=== PATIENT | male | born 1945 | race African-American/Black ===

== ENCOUNTER 2019-02-09 09:55 | Inpatient (IN) | payer OTHER ==
[2019-02-09] MEDS ORDERED: ONDANSETRON 4 MG/2 ML VIAL ONE ×2 (10:03→12:30)
[2019-02-09] MEDS ORDERED: NA CHLORIDE 0.9% 1,000 ML ONE ×2 (10:03→11:36)
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
--- OUTSIDE RECORDS SUMMARY | 2019-02-09 10:03 | XMS REPORT | Clinical Summary ---
:1945 Author Organization [facility] Address [address] [place] [address] Care Team Providers Name Role Phone Paty Vance MD Primary Care Provider Allergies No Known Allergies Medications Medication Sig Dispensed Refills Start Date End Date Status amLODIPine (NORVASC) Take 10 mg by 0 03/12/2017 Active 10 mg tablet mouth once daily. aspirin (ECOTRIN) 81 Take 81 mg by 0 03/12/2017 Active MG enteric coated mouth once tablet daily. benazepril TAKE 1 TAB(S) 0 03/12/2017 Active (LOTENSIN) 40 MG ONCE A DAY tablet ORALLY 90 DAY(S) fenofibrate (TRICOR) Take 145 mg by 0 03/01/2017 Active 145 MG tablet mouth once daily. glipiZIDE Take 5 mg by 0 03/12/2017 Active (GLUCOTROL) 5 MG mouth once tablet daily. nateglinide Take 120 mg by 1 01/19/2017 Active (STARLIX) 120 MG mouth 2 (two) tablet times a day. metFORMIN XR Take 500 mg by 0 03/12/2017 Active (GLUCOPHAGE-XR) 500 mouth once mg 24 hr tablet daily. metoprolol succinate Take 100 mg by 0 03/12/2017 Active XL (TOPROL-XL) 100 mouth once mg 24 hr tablet daily. simvastatin (ZOCOR) Take 40 mg by 0 03/12/2017 Active 40 MG tablet mouth once daily. isosorbide TAKE 1 ORAL 0 01/19/2017 Active mononitrate TABLET 2 TIMES A (ISMO,MONOKET) 20 MG DAY tablet tamsulosin (FLOMAX) Take 1 capsule 90 capsule 3 04/21/2017 Active 0.4 mg (0.4 mg total) capsule,extended by mouth daily. release 24hr tolterodine LA Take 1 capsule 90 capsule 3 04/21/2017 04/21/2018 (DETROL LA) 4 MG 24 (4 mg total) by hr capsule mouth daily. Active Problems No known active problems Encounters Date Type Specialty Care Team Description 03/09/2018 Office Visit Orthopedic Surgery Dereck Chacon Olecranon bursitis of MD MAXIMUS right elbow (Primary Dx) after 02/08/2018 Family History Medical History Relation Name Comments Diabetes Father Stroke Father No Known Problems Mother Relation Name Status Comments Father Mother Social History Tobacco Use Types Packs/Day Years Used Date Never Smoker Smokeless Tobacco: Never Used Alcohol Use Drinks/Week oz/Week Comments No Sex Assigned at Date Recorded Not on file Job Start Date Occupation Industry Not on file Not on file Not on file Travel History Travel Start Travel End No recent travel history available. Last Filed Vital Signs Vital Sign Reading Time Taken Comments Blood Pressure - - Pulse - - Temperature - - Respiratory Rate - - Oxygen Saturation - - Inhaled Oxygen Concentration - - Weight 68 kg (150 lb) 03/09/2018 9:40 AM CDT Height 175.3 cm (5' 9") 03/09/2018 9:40 AM CDT Body Mass Index 22.15 03/09/2018 9:40 AM CDT Plan of Treatment Health Maintenance Due Date Last Done Comments SHINGLES VACCINES (#1) 1993 65+ PNEUMOCOCCAL VACCINE (1 of 2 - PCV13) 2008 INFLUENZA VACCINE 01/19/2019 COLONOSCOPY SCREENING 09/15/2022 09/15/2017 Procedures Procedure Name Priority Date/Time Associated Comments Diagnosis DE ARTHROCENTESIS Routine 03/09/2018 9:20 Olecranon bursitis Results for this ASPIR&/INJ INTERM AM CDT of right elbow procedure are in JT/BURS W/O US the results section. after 02/08/2018 Results Medium Joint Arthrocentesis (03/09/2018 9:20 AM CDT) Narrative Performed At Dereck Chacon III, MD 03/12/20189:38 AM Right olecranon bursitis aspiration Consent given by: patient Supporting Documentation Indications: pain and diagnostic evaluation Procedure Details Preparation: Patient was prepped and draped in the usual sterile fashion Location: elbow - R elbow Right side: Needle size (right): 18G. Approach: posterior Right elbow medications administered: 0.5 mL lidocaine 10 mg/mL (1 %) Aspirate amount: 13 mL Aspirate: serous and bloody Patient tolerance: patient tolerated the procedure well with no immediate complications after 02/08/2018 Insurance Payer Benefit Plan / Subscriber ID Effective Dates Phone Address Type Group CIGNA CIGNA HMO/POS xxxxxxxxxxx 2007-Present [facility] MEDICARE MEDICARE PART A xxxxxxxxxx 2008-Present [place], [place] Medicare AND B AETNA AETNA HMO,POS,EPO, xxxxxxxxx 2003-Present [facility] Guarantor Name Account Type Relation to Date of Phone Billing Address Patient Hector Lorenzana Personal/Famil Self 1945 [phone]) [place] [address] Advance Directives For more information, please contact: [phone] Type Date Recorded Patient Rolling Attendant Explanation Advance Directives, Living Will and Medical Power of Damage Adjuster
--- OUTSIDE RECORDS SUMMARY | 2019-02-09 10:03 | XMS REPORT | Clinical Summary ---
:1945 Author Organization [facility] Address [address] [place] [address] Care Team Providers Name Role Phone Pcp, No Primary Care Provider Unavailable Allergies No Known Allergies Medications Medication Sig Dispensed Refills Start Date End Date Status SITagliptin (JANUVIA) Take 50 mg by 0 Active 100 MG tablet mouth daily. fenofibrate Take 135 mg by 0 Active (TRIGLIDE,LOFIBRA) mouth daily. 160 MG tablet tolterodine (DETROL) Take 4 mg by 0 Active 1 MG tablet mouth 2 (two) times daily. aspirin 81 MG EC Take 81 mg by 0 Active tablet mouth daily. amLODIPine (NORVASC) Take 10 mg by 0 Active 10 MG tablet mouth daily. metoprolol Take 100 mg by 0 Active (TOPROL-XL) 50 MG 24 mouth daily. hr tablet tamsulosin HCl Take 0.4 mg by 0 Active (TAMSULOSIN ORAL) mouth. simvastatin (ZOCOR) Take 40 mg by 0 Active 10 MG tablet mouth nightly. pioglitazone (ACTOS) Take 30 mg by 0 Active 15 MG tablet mouth daily. benazepril-hydrochlor Take 1 tablet by 0 Active thiazide (LOTENSIN mouth daily. HCT) 10-12.5 mg per tablet ibuprofen Take 1 tablet 20 tablet 0 09/20/2018 09/30/2018 (ADVIL,MOTRIN) 600 MG (600 mg total) tablet by mouth every 8 (eight) hours as needed for up to 10 days. acetaminophen-codeine Take 1 tablet by 20 tablet 0 09/20/2018 09/30/2018 (TYLENOL #3) 300-30 mouth every 6 mg per tablet (six) hours as needed for up to 10 days. Max Daily Amount: 4 tablets Active Problems Not on file Encounters Date Type Specialty Care Team Description 09/20/2018 Emergency Emergency Medicine Toma Urena MD Acute pain of right knee (Primary Dx); Hypertension, unspecified type; Vascular dementia without behavioral disturbance 09/19/2018 Travel after 02/08/2018 Social History Tobacco Use Types Packs/Day Years Used Date Never Smoker Smokeless Tobacco: Never Used Alcohol Use Drinks/Week oz/Week Comments No Alcohol Habits Answer Date Recorded How often do you have a drink containing alcohol? Never 09/19/2018 How many drinks containing alcohol do you have on a typical Not asked day when you are drinking? How often do you have six or more drinks on one occasion? Not asked Sex Assigned at Date Recorded Not on file Job Start Date Occupation Industry Not on file Not on file Not on file Travel History Travel Start Travel End No recent travel history available. Last Filed Vital Signs Vital Sign Reading Time Taken Blood Pressure 137/79 09/20/2018 3:50 AM CDT Pulse 86 09/20/2018 3:50 AM CDT Temperature 36.8 C (98.2 F) 09/19/2018 9:17 PM CDT Respiratory Rate 17 09/20/2018 3:50 AM CDT Oxygen Saturation 98% 09/20/2018 3:50 AM CDT Inhaled Oxygen Concentration - - Weight 72.6 kg (160 lb) 09/19/2018 9:17 PM CDT Height 170.2 cm (5' 7") 09/19/2018 9:17 PM CDT Body Mass Index 25.06 09/19/2018 9:17 PM CDT Plan of Treatment Not on file Procedures Procedure Name Priority Date/Time Associated Diagnosis Comments XR KNEE RIGHT STAT 09/20/2018 3:10 AM Results for this COMPLETE (4 VIEWS) CDT procedure are in the results section. after 02/08/2018 Results XR knee complete 4 views right (09/20/2018 3:10 AM CDT) Specimen Narrative Performed At FINAL REPORT [facility] RAD, KNEE, COMPLETE (4 VIEWS), RIGHT CLINICAL INDICATION:LEG PAIN COMPARISON: None FINDINGS: Frontal, lateral and oblique views of the right knee were obtained. There are bony exostoses in the proximal tibia and fibula diaphysis. There is no acute fracture or dislocation. There are small periarticular osteophytes. The joint spaces are maintained. There is a small suprapatellar effusion. There are vascular calcifications. IMPRESSION: Mild degenerative changes without acute fracture or dislocation. Small suprapatellar effusion. Signed: Alyce Glasgow MD Report Verified Date/Time:09/20/2018 03:13:55 Reading Location: [facility] B1 C013Y CT Body Reading Room Procedure Note Interface, External Ris In - 09/20/2018 3:16 AM CDT FINAL REPORT RAD, KNEE, COMPLETE (4 VIEWS), RIGHT CLINICAL INDICATION: LEG PAIN COMPARISON: None FINDINGS: Frontal, lateral and oblique views of the right knee were obtained. There are bony exostoses in the proximal tibia and fibula diaphysis. There is no acute fracture or dislocation. There are small periarticular osteophytes. The joint spaces are maintained. There is a small suprapatellar effusion. There are vascular calcifications. IMPRESSION: Mild degenerative changes without acute fracture or dislocation. Small suprapatellar effusion. Signed: Alyce Glasgow MD Report Verified Date/Time: 09/20/2018 03:13:55 Reading Location: [facility] B1 C013Y CT Body Reading Room Performing Organization Address City/State/Zipcode Phone Number GE RIS after 02/08/2018 Insurance Payer Benefit Plan / Group Subscriber ID Type Phone Address MEDICARE MEDICARE A B xxxxxxxxxxx Medicare AETNA - [place] CARE AETNA INDEMNITY NON CONTR xxxxxxxxx Comm CIGNA - [place] CARE CIGNA HMO/POS/OPEN ACCESS xxxxxxxxxxx HMO/POS
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
--- OUTSIDE RECORDS SUMMARY | 2019-02-09 10:04 | XMS REPORT | Summary of Care ---
:1945 Author Name Milena Mccoy M.A. Address Unavailable Unavailable , Care Team Providers Name Role Phone ABBY MANDEL M.D. Unavailable Unavailable Milena Mccoy M.A. Unavailable Unavailable TEQUILA GILMAN [place], ABBY Hackett Unavailable Unavailable Unavailable Unavailable Unavailable Functional Status Name Dates Details Functional status health issues are not documented Status: Name Dates Details Cognitive status health issues are not documented Status: Problems Name Dates Details Acute Osteomyelitis Of The Forearm (730.03) Status: Active Open fracture of medial malleolus, unspecified laterality, type I or II, initial encounter Status: Active Closed fracture of pubis (808.2, S32.509A) Status: Active Medications Name Dates Details Acetaminophen-Codeine #3 300-30 MG Oral Tablet TAKE 1 TABLET EVERY 6 HOURS NEEDED FOR PAIN. Quantity: 30 Refills: 1 ABBY MANDEL M.D. Start : 20-Oct-2018 Active Allergies and Adverse Reactions Name Dates Details No Known Allergies (Allergy) Status: Active Procedures Procedure Dates Details Procedures not documented Immunization Name Dates Details Immunizations not documented Social History Name Dates Details - Status: Name Dates Details Never smoker Vital Signs Date Test Result Details No Known Vitals to report Results Date Description Value Details [id number] [U] XRAY KNEE 4 OR MORE VWS RIGHT [id number] XR KNEE 4 OR MORE VWS RIGHT Images acquired, not reported on this accession number. Plan of Care Name Dates Details Planned Observations Planned Goals not documented Interventions Provided Medication ChangesAcetaminophen-Codeine #3 300-30 MG Oral Tablet - Start Instructions Name Dates Details Instructions not documented Encounters Appointment; ABBY MANDEL M.D. On: 12-Oct-2018 9:15 Encounter Diagnosis: Problem not documented
--- OUTSIDE RECORDS SUMMARY | 2019-02-09 10:04 | XMS REPORT ---
:1945 Author Organization [facility] Address [address] [place] [address] Care Team Providers Name Role Phone Unavailable Unavailable Unavailable Problems This patient has no known problems. Allergies, Adverse Reactions, Alerts This patient has no known allergies or adverse reactions. Medications This patient has no known medications. Results Test Description Test Time Test Comments Text Results Atomic Results Result Comments RAD, KNEE, 2018-09-20 03:13:00 Reason for FINAL REPORT PATIENT ID: COMPLETE (4 exam:->LEG PAIN [id number] RAD, KNEE, VIEWS), RIGHT COMPLETE (4 VIEWS), RIGHT CLINICAL INDICATION: LEG [...] or dislocation. Small suprapatellar effusion. Signed: Alyce Baxterort Verified Date/Time: 09/20/2018 03:13:55 Reading Location: [facility] B1 C013Y CT Body Reading Room
[2019-02-09 10:31] LABS: Absolute Lymphocytes (CBC) 1.1 K/uL (0.7-4.9); Basophils % 0.2 % (0-1.3); Hematocrit 27.9 % (39.6-49.0); Lymphocytes % 11.2 % (15.3-44.8); MPV 8.2 fL (7.6-11.3)
[2019-02-09 10:52] LABS: ALT/SGPT 236 U/L (12-78); Albumin 3.6 g/dL (3.4-5.0); Alkaline Phosphatase 95 U/L (45-117); BUN Blood Urea Nitrogen 29 mg/dL (7-18); Bicarbonate 30 mmol/L (21-32); Bilirubin Total 1.4 mg/dL (0.2-1.0); Glucose Level 144 mg/dL (74-106); Lipase > 30000 U/L (73-393); Potassium 3.1 mmol/L (3.5-5.1); Protein, Total 7.5 g/dL (6.4-8.2); Sodium Level 143 mmol/L (136-145)
[2019-02-09 10:53] LABS: AST/SGOT 576 U/L (15-37)
--- NOTE | 2019-02-09 11:17 | RAD REPORT ---
EXAM DESCRIPTION: US - Abdomen Exam Limited - 02/09/2019 11:10 am CLINICAL HISTORY: r/o GB;Abd pain COMPARISON: No comparisons FINDINGS: The gallbladder demonstrates multiple shadowing gallstones. Trace pericholecystic fluid is seen. The common bile duct is dilated measuring 10 mm. The liver demonstrates no findings of intrahepatic biliary dilatation. IMPRESSION: Cholelithiasis is noted with trace pericholecystic fluid. Early cholecystitis is is a po ssibility should be clinically correlated. Dilated common bile duct measuring 10 mm could indicate choledocholithiasis
[2019-02-09] MEDS ORDERED: METRONIDAZOLE 500mg IVPB 500 MG/100 ML BAG IV ONE (11:29)
[2019-02-09] MEDS ORDERED: CEFOXITIN/SWI 1gm 1 GM/10 ML SYR ONE (11:29)
[2019-02-09] MEDS ORDERED: KCL 20 MEQ/100 mL IVPB 20 MEQ/100 ML BAG IV ONE (11:36)
--- NOTE | 2019-02-09 11:47 | EDPHYS ---
Physician Documentation [facility] Name: Hector Lorenzana Jr Age: 73 yrs Sex: Male : 1945 Arrival Date: 02/09/2019 Time: 09:59 Bed 6 Private MD: ED Physician Sedrick Woods HPI: 02/09 10:54 This 73 yrs old Black Male presents to ER via EMS with complaints of Abdominal Pain, jr8 Epigastric Pain. 10:54 The patient presents with abdominal pain in the epigastric area, in the upper abdomen. jr8 Onset: The symptoms/episode began/occurred acutely, today. The symptoms do not radiate. Associated signs and symptoms: Pertinent positives: nausea and vomiting. The symptoms are described as crampy, stabbing. Modifying factors: The symptoms are alleviated by nothing, the symptoms are aggravated by nothing. Severity of pain: At its worst the pain was moderate in the emergency department the pain is unchanged. The patient has not experienced similar symptoms in the past. The patient has not recently seen a physician. Historical: - Allergies: 10:02 No Known Allergies; sv - PMHx: 10:02 Diabetes - NIDDM; Hypertension; sv - PSHx: 10:02 R ankle; sv - Immunization history:: Adult Immunizations up to date. - Social history:: Smoking status: Patient/guardian denies using tobacco, Patient/guardian denies using alcohol. - Ebola Screening: : No symptoms or risks identified at this time. ROS: 10:54 Eyes: Negative for injury, pain, redness, and discharge, ENT: Negative for injury, jr8 pain, and discharge, Neck: Negative for injury, pain, and swelling, Cardiovascular: Negative for chest pain, palpitations, and edema, Respiratory: Negative for shortness of breath, cough, wheezing, and pleuritic chest pain, Back: Negative for injury and pain, MS/Extremity: Negative for injury and deformity, Skin: Negative for injury, rash, and discoloration, Neuro: Negative for headache, weakness, numbness, tingling, and seizure. 10:54 Abdomen/GI: Positive for abdominal pain, nausea and vomiting, Negative for diarrhea, constipation, abdominal cramps, abdominal distension, anorexia, dysphagia, hematemesis, black/tarry stool, rectal pain, rectal bleeding, bowel incontinence, flatulence. Exam: 10:54 Eyes: Pupils equal round and reactive to light, extra-ocular motions intact. Lids and jr8 lashes normal. Conjunctiva and sclera are non-icteric and not injected. Cornea within normal limits. Periorbital areas with no swelling, redness, or edema. ENT: Nares patent. No nasal discharge, no septal abnormalities noted. Tympanic membranes are normal and external auditory canals are clear. Oropharynx with no redness, swelling, or masses, exudates, or evidence of obstruction, uvula midline. Mucous membranes moist. Neck: Trachea midline, no thyromegaly or masses palpated, and no cervical lymphadenopathy. Supple, full range of motion without nuchal rigidity, or vertebral point tenderness. No Meningismus. Cardiovascular: Regular rate and rhythm with a normal S1 and S2. No gallops, murmurs, or rubs. Normal PMI, no JVD. No pulse deficits. Respiratory: Lungs have equal breath sounds bilaterally, clear to auscultation and percussion. No rales, rhonchi or wheezes noted. No increased work of breathing, no retractions or nasal flaring. Back: No spinal tenderness. No costovertebral tenderness. Full range of motion. Skin: Warm, dry with normal turgor. Normal color with no rashes, no lesions, and no evidence of cellulitis. MS/ Extremity: Pulses equal, no cyanosis. Neurovascular intact. Full, normal range of motion. Neuro: Awake and alert, GCS 15, oriented to person, place, time, and situation. Cranial nerves II-XII grossly intact. Motor strength 5/5 in all extremities. Sensory grossly intact. Cerebellar exam normal. Normal gait. 10:54 Abdomen/GI: Inspection: abdomen appears normal, Bowel sounds: active, all quadrants, Palpation: soft, in all quadrants, mild abdominal tenderness, in the right upper quadrant and left upper quadrant, moderate abdominal tenderness, in the epigastric area, mass, is not appreciated, rebound tenderness, is not appreciated, voluntary guarding, is not appreciated, involuntary guarding, is not appreciated, no appreciated organomegaly, Indicators: McBurney's point is not tender, Smith's sign is negative, Rovsing's sign is negative, Liver: tenderness, is not appreciated. Vital Signs: 10:01 BP 115 / 61; Pulse 68; Resp 18; Temp 97.9; Pulse Ox 100% ; Weight 72.57 kg; Height 5 sv ft. 7 in. (170.18 cm); Pain 8/10; 11:42 BP 177 / 90; Pulse 77; Resp 20; Pulse Ox 100% ; Pain 0/10; sv 12:36 BP 163 / 84; Pulse 78; Resp 17; Pulse Ox 98% on R/A; sv 10:01 Body Mass Index 25.06 (72.57 kg, 170.18 cm) sv MDM: 10:00 Patient medically screened. 11:38 Data reviewed: vital signs, nurses notes, lab test result(s), radiologic studies, jr8 ultrasound. Data interpreted: Pulse oximetry: on room air is 100 %. Interpretation: normal. Counseling: I had a detailed discussion with the patient and/or guardian regarding: the historical points, exam findings, and any diagnostic results supporting the discharge/admit diagnosis, lab results, radiology results, the need for further work-up and treatment in the hospital. ED course: awaiting call back from Dr. Vieyra . 02/09 10:01 Order name: Basic Metabolic Panel; Complete Time: 02/09 10:01 Order name: CBC with Diff; Complete Time: 10:39 02/09 10:01 Order name: Creatinine for Radiology; Complete Time: 10:02/09 10:01 Order name: Hepatic Function; Complete Time: 02/09 10:01 Order name: Lipase; Complete Time: :02/09 10:53 Order name: US Abdomen Limited; Complete Time: 11:24 02/09 10:01 Order name: IV Saline Lock; Complete Time: 10:02/09 10:01 Order name: Labs collected and sent; Complete Time: 10:02/09 10:01 Order name: EKG - Nurse/Tech; Complete Time: 10:02/09 10:01 Order name: EKG; Complete Time: 10:02 Administered Medications: 10:20 Drug: NS 0.9% 1000 ml Route: IV; Rate: 1000 ml; Site: right antecubital; sv 11:42 Follow up: Response: No adverse reaction; IV Status: Completed infusion; IV Intake: sv 1000ml 10:20 Drug: Zofran 4 mg Route: IVP; Site: right antecubital; sv 10:50 Follow up: Response: No adverse reaction; Marked relief of symptoms; Nausea is decreasedsv 11:30 Drug: Mefoxin 1 grams {Note: given IVP per pharmacy.} Route: IVPB; Infused Over: 30 sv mins; Site: right antecubital; 11:34 Follow up: Response: No adverse reaction; IV Status: Completed infusion; IV Intake: 10mlsv 11:34 Drug: Flagyl 500 mg Volume: 100 ml; Route: IVPB; Rate: 200 ml/hr; Infused Over: 30 sv mins; Site: right antecubital; 12:54 Follow up: Response: No adverse reaction; IV Status: Completed infusion; IV Intake: sv 100ml 11:42 Drug: Potassium Chloride 20 mEq Route: IV; Rate: calculated rate; Site: right sv antecubital; 13:00 Follow up: IV Status: Infusion continued upon admission sv 11:42 Drug: NS 0.9% 1000 ml Route: IV; Rate: 75 ml/hr; Site: right antecubital; sv 12:30 Drug: Zofran 4 mg Route: IVP; Site: right antecubital; sv 13:00 Follow up: Response: No adverse reaction sv 12:32 Drug: Pepcid 20 mg Route: IVP; Site: right antecubital; sv 12:55 Follow up: Response: No adverse reaction sv Disposition: 15:33 Co-signature as Attending Physician, Sedrick Woods MD I agree with the assessment and kate plan of care. Disposition: 02/09/19 11:45 Hospitalization ordered by Jennifer Reddy for Inpatient Admission. Preliminary diagnosis are Cholecystitis, Choledocholithiasis . - Bed requested for Telemetry/MedSurg (Inpatient). - Status is Inpatient Admission. hb - Condition is Stable. - Problem is new. - Symptoms have improved. UTI on Admission? No Signatures: Dispatcher [employer] Maddy Goldstein RN RN sv Anderson, Corey, MD MD cha Martinez, Eric em1 Rupert Quiroz PA PA jr8 Callie Albert RN RN hb Corrections: (The following items were deleted from the chart) 12:51 11:45 Hospitalization Ordered by Jennifer Reddy MD for Inpatient Admission. Preliminary em1 diagnosis is Cholecystitis; Choledocholithiasis . Bed requested for Telemetry/MedSurg (Inpatient). Status is Inpatient Admission. Condition is Stable. Problem is new. Symptoms have improved. UTI on Admission? No. jr8 13:48 12:51 02/09/2019 11:45 Hospitalization Ordered by Jennifer Reddy MD for Inpatient hb Admission. Preliminary diagnosis is Cholecystitis; Choledocholithiasis . Bed requested for Telemetry/MedSurg (Inpatient). Status is Inpatient Admission. Condition is Stable. Problem is new. Symptoms have improved. UTI on Admission? No. em1
--- NOTE | 2019-02-09 11:47 | ER ---
Nurse's Notes [facility] Name: Hector Lorenzana Jr Age: 73 yrs Sex: Male : 1945 Arrival Date: 02/09/2019 Time: 09:59 Bed 6 Private MD: Diagnosis: Cholecystitis;Choledocholithiasis Presentation: 02/09 09:53 Presenting complaint: EMS states: initially called out for chest pain but upon EMS sv arrival pt pointed to the pain and it was more epigastric pain that felt like there was a "band around me." c/o dizziness. Initial BP 122/60 (manual) and latest BP 92/59 HR-60 99% RA. Transition of care: patient was not received from another setting of care. Onset of symptoms was February 09, 2019. Risk Assessment: Do you want to hurt yourself or someone else? Patient reports no desire to harm self or others. Initial Sepsis Screen: Does the patient meet any 2 criteria? No. Patient's initial sepsis screen is negative. Does the patient have a suspected source of infection? No. Patient's initial sepsis screen is negative. Care prior to arrival: None. 09:53 Method Of Arrival: EMS: [facility] sv 09:53 Acuity: ADRIANNA 3 sv Triage Assessment: 09:53 General: Appears in no apparent distress. uncomfortable, well developed, Behavior is sv calm, cooperative, appropriate for age. Pain: Complains of pain in epigastric area Pain currently is 8 out of 10 on a pain scale. Quality of pain is described as pressure, Pain began 4 hours ago. Is intermittent. Neuro: Level of Consciousness is awake, alert, obeys commands, Oriented to person, place, time, situation, Moves all extremities. Full function Gait is steady, Speech is normal. Respiratory: Airway is patent Respiratory effort is even, unlabored, Respiratory pattern is regular, symmetrical. GI: Abdomen is flat, Abd is soft X 4 quads Abdomen is tender to palpation in epigastric area. Derm: Skin is pink, warm \\T\\ dry. Historical: - Allergies: 10:02 No Known Allergies; sv - PMHx: 10:02 Diabetes - NIDDM; Hypertension; sv - PSHx: 10:02 R ankle; sv - Immunization history:: Adult Immunizations up to date. - Social history:: Smoking status: Patient/guardian denies using tobacco, Patient/guardian denies using alcohol. - Ebola Screening: : No symptoms or risks identified at this time. Screenin:21 Abuse screen: Denies threats or abuse. Denies injuries from another. Nutritional sv screening: No deficits noted. Tuberculosis screening: No symptoms or risk factors identified. Fall Risk None identified. Assessment: 11:00 Reassessment: Patient appears in no apparent distress at this time. Patient and/or sv family updated on plan of care and expected duration. Pain level reassessed. Patient is alert, oriented x 3, equal unlabored respirations, skin warm/dry/pink. 11:43 Reassessment: Patient appears in no apparent distress at this time. Patient and/or sv family updated on plan of care and expected duration. Pain level reassessed. Patient is alert, oriented x 3, equal unlabored respirations, skin warm/dry/pink. Patient denies pain at this time. 12:26 Reassessment: Patient appears in no apparent distress at this time. Patient and/or sv family updated on plan of care and expected duration. Pain level reassessed. Patient is alert, oriented x 3, equal unlabored respirations, skin warm/dry/pink. GI: Pt is actively vomiting undigested food. 13:01 Reassessment: Dr Reddy at the bedside. sv 13:05 Reassessment: Nurse to call back for report. sv 13:20 Reassessment: Patient appears in no apparent distress at this time. Patient and/or sv family updated on plan of care and expected duration. Pain level reassessed. Patient is alert, oriented x 3, equal unlabored respirations, skin warm/dry/pink. Vital Signs: 10:01 BP 115 / 61; Pulse 68; Resp 18; Temp 97.9; Pulse Ox 100% ; Weight 72.57 kg; Height 5 sv ft. 7 in. (170.18 cm); Pain 8/10; 11:42 BP 177 / 90; Pulse 77; Resp 20; Pulse Ox 100% ; Pain 0/10; sv 12:36 BP 163 / 84; Pulse 78; Resp 17; Pulse Ox 98% on R/A; sv 10:01 Body Mass Index 25.06 (72.57 kg, 170.18 cm) sv ED Course: 09:59 Patient arrived in ED. sv 09:59 Maddy Nuñez TITO is Primary Nurse. sv 10:00 Rupert Quiroz PA is PHCP. jr8 10:00 Sedrick Woods MD is Attending Physician. jr8 10:01 Triage completed. sv 10:02 Arm band placed on. sv 10:15 Inserted saline lock: 22 gauge in right antecubital area, using aseptic technique. sv Blood collected. Flushed right antecubital with 5 ml normal saline. 10:17 EKG done, by diesel automotive technician. reviewed by Rupert SAMAYOA. sm3 10:21 Patient has correct armband on for positive identification. Placed in gown. Bed in low sv position. Call light in reach. patient monitor on. Pulse ox on. NIBP on. 10:34 Door closed. Warm blanket given. Head of bed elevated. sv 11:00 Patient taken to ultrasound. via wheelchair. sv 11:12 US Abdomen Limited In Process Unspecified. EDMS 11:45 Jennifer Reddy MD is Hospitalizing Provider. jr8 11:47 Awaiting bed assignment. sv 13:22 No provider procedures requiring assistance completed. Patient admitted, IV remains in sv place. intact. Administered Medications: 10:20 Drug: NS 0.9% 1000 ml Route: IV; Rate: 1000 ml; Site: right antecubital; sv 11:42 Follow up: Response: No adverse reaction; IV Status: Completed infusion; IV Intake: sv 1000ml 10:20 Drug: Zofran 4 mg Route: IVP; Site: right antecubital; sv 10:50 Follow up: Response: No adverse reaction; Marked relief of symptoms; Nausea is decreasedsv 11:30 Drug: Mefoxin 1 grams {Note: given IVP per pharmacy.} Route: IVPB; Infused Over: 30 sv mins; Site: right antecubital; 11:34 Follow up: Response: No adverse reaction; IV Status: Completed infusion; IV Intake: 10mlsv 11:34 Drug: Flagyl 500 mg Volume: 100 ml; Route: IVPB; Rate: 200 ml/hr; Infused Over: 30 sv mins; Site: right antecubital; 12:54 Follow up: Response: No adverse reaction; IV Status: Completed infusion; IV Intake: sv 100ml 11:42 Drug: Potassium Chloride 20 mEq Route: IV; Rate: calculated rate; Site: right sv antecubital; 13:00 Follow up: IV Status: Infusion continued upon admission sv 11:42 Drug: NS 0.9% 1000 ml Route: IV; Rate: 75 ml/hr; Site: right antecubital; sv 12:30 Drug: Zofran 4 mg Route: IVP; Site: right antecubital; sv 13:00 Follow up: Response: No adverse reaction sv 12:32 Drug: Pepcid 20 mg Route: IVP; Site: right antecubital; sv 12:55 Follow up: Response: No adverse reaction sv Intake: 11:34 IV: 10ml; Total: 10ml. sv 11:42 IV: 1000ml; Total: 1010ml. sv 12:54 IV: 100ml; Total: 1110ml. sv Output: 12:26 Gastric: 200ml (Emesis); Total: 200ml. sv Outcome: 11:45 Decision to Hospitalize by Provider. asa 13:22 Admitted to Tele accompanied by tech, via wheelchair, room 423, with chart, Report sv called to Devyn FRANCIS 13:22 Condition: stable 13:22 Instructed on the need for admit. 13:48 Patient left the ED. hb Signatures: Dispatcher [employer] EDMaddy Patino RN RN Rupert Quiroz PA PA jr8 Callie Albert RN RN Amie Figueroa sm3 Corrections: (The following items were deleted from the chart) 11:34 11:30 Mefoxin 1 grams IVPB in right antecubital over 30 mins sv sv 11:43 11:43 Reassessment: Patient appears in no apparent distress at this time. No changes sv from previously documented assessment. Patient and/or family updated on plan of care and expected duration. Pain level reassessed. Patient is alert, oriented x 3, equal unlabored respirations, skin warm/dry/pink. sv
[2019-02-09] MEDS ORDERED: FAMOTIDINE 20 MG/2 ML VIAL IV ONE (12:30)
--- NOTE | 2019-02-09 13:48 | EKG ---
Test Date: 2019-02-09 Test Time: 10:08:53 Cloth Printer Helper: CIERRA MEASUREMENT RESULTS: Intervals: Rate: 62 OK: 162 QRSD: 96 QT: 456 QTc: 462 [place]: P: 63 OK: 162 QRS: 68 T: 6 INTERPRETIVE STATEMENTS: Normal sinus rhythm Minimal voltage criteria for LVH, may be normal variant Nonspecific T wave abnormality Prolonged QT Abnormal ECG No previous ECG available for comparison Electronically Signed On 02-09-19 13:47:12 CDT by Lester Rodriguez
[2019-02-09] MEDS ORDERED: ACETAMINOPHEN 650MG/RECT SUPP PR PRN (13:58)
[2019-02-09] MEDS ORDERED: ONDANSETRON 4 MG/2 ML VIAL IV PRN (13:58)
[2019-02-09] MEDS ORDERED: KCL 20 MEQ/100 mL IVPB 20 MEQ/100 ML BAG IV SCH ×2 (14:00→16:00)
[2019-02-09] MEDS ORDERED: NA CHLORIDE 0.9% 1,000 ML IV SCH (14:00)
[2019-02-09] MEDS ORDERED: GLUCAGON 1 MG/VIAL IM PRN (14:07)
[2019-02-09] MEDS ORDERED: D50W 25 GM/50 ML SYRINGE IV PRN (14:07)
[2019-02-09] MEDS ORDERED: PROMETHAZINE 25 MG/ML VIAL IV PRN (14:18)
[2019-02-09 14:52] VITALS: BMI 25.0
[2019-02-09 14:57] LABS: Urine Appearance CLEAR; Urine Bilirubin NEGATIVE (NEG); Urine Blood TRACE (NEG); Urine Color YELLOW; Urine Glucose 1+ (NEG); Urine Protein TRACE (NEG); Urine Specific Gravity 1.015 (1.005-1.030)
[2019-02-09 14:59] LABS: Urine Microscopic Reflex ORDER UMIC
[2019-02-09 15:58] LABS: Protime INR 1.07
[2019-02-09] MEDS: NA CHLORIDE 0.9% 1,000 ML IV SCH ×2 (16:06→23:58)
--- NOTE | 2019-02-09 16:06 | CON ---
Date of Consultation: 02/09/2019 Reason For Consultation: Elevated BUN and creatinine. History Of Present Illness: This is a pleasant 73-year-old black gentleman with significant past med ical history of diabetes since 2004, hypertension since 1999, no coronary artery disease. Not known of any kidney disease before. Patient came to the hospital because of right upper quadrant abdominal pain without any radiation with nausea and occasional vomiting. No fever or chills. Primary workup showed elevation in BUN and creatinine. For that reason, we have been consulted. Patient denied ta willy any nonsteroidal. No recent change in his medication. No recent hospitalization. No IV contra st. No exposure for any antibiotic. Denied any rash or any joint problem. Patient not aware about any kidney disease. Patient's primary workup showed elevation in creatinine, was 2.9 with GFR of 25 with hypokalemia and alkalosis. Past Medical History: 1.Diabetes not complicated with neuropathy or retinopathy. 2.Hypertension. 3.Hyperlipidemia. Social History: Denies smoking. Denies drinking. Denies drug abuse. Allergies: NO KNOWN DRUG ALLERGY. Family History: Positive for hypertension. Past Surgical History: Noncontributory. Medications: Home medication has been reviewed. Review of Systems: Head and Neck: No red eye. No ear pain. GI: Has right upper quadrant pain. Has nausea. No vomiting. : No polyuria. No dysuria. No hematuria. PUBLIC ADDRESS TECHNICIAN: Not applicable. Respiratory: No shortness of breath. Cardiovascular: No chest pain. Endocrine: No polydipsia. Skin: No rash. Neurologic: No neuropathy. No weakness. Musculoskeletal: No joint pain. Skin: No rash. Physical Examination: Vital Signs: When I saw the patient, blood pressure 132/76, pulse of 88. Chest: Clear to auscultation. Heart: S1, S2. Regular. Abdomen: Tenderness on the right upper quadrant. No guarding or rebound. Extremities: No edema. Neurologic: Alert and oriented x3. No focal. Laboratory Data: Sodium 143, potassium 3.1, bicarb 30, BUN 29, creatinine 2.9, GFR 25, calcium 9.2. Lipase more than 30,000. Albumin 3.6. WBC 9.5, H and H 9.5/27.9, platelets 235. Abdominal ultraso und showing multiple shadowing gallstone, polycystic fluid. Assessment And Plan: 1.Renal failure, mostly chronic kidney disease with acute component secondary to the nausea, vomitin g, the chronic kidney disease, supported with the finding of no severe disproportion. BUN and creati nine even with contraction alkalosis, acute kidney injury secondary to gastrointestinal loss secondar y to the nausea. 2.I am going to start the patient on IV hydration. Given the presence of anemia, light chain diseas e need to be ruled out. We will send for serum protein electrophoresis and we will hold blood pressu re medications, especially MARTINA inhibitor or ARB for the time being and we will follow up. 3.Hypertension, as above. 4.Cholelithiasis with cholecystitis. We will start the patient on Zosyn as by primary. We will adj ust the dosage. 5.Diabetes, as by primary. 6.Contraction alkalosis secondary to gastrointestinal loss. We are going to be corrected on hydrati on. 7.Hypokalemia secondary to gastrointestinal loss. We will supplement cautiously given the renal johnathan lure. 8.Anemia with the presence of acute kidney injury. Light chain disease needs to be ruled out. We w ill send for the workup. Thank you, Dr. Reddy, for allowing us to participate in the care of your patient. CHUNG Voice ID: [id number] Report ID: [id number]
[2019-02-09 16:22] LABS: Urine Bacteria <20 /HPF (NONE SEEN); Urine Culture Reflex Order NOT NEEDED; Urine RBC <5 /HPF (NONE SEEN)
[2019-02-09] MEDS: INSULIN -REGULAR HUMAN 50 UNIT/0.5 ML ML SQ SCH ×2 (16:30→21:00)
[2019-02-09] MEDS ORDERED: PIPER/TAZO/NS 2.25gm 2.25 GM/50 ML BAG IVPB SCH (17:00)
[2019-02-09] MEDS: HYDRALAZINE HCL 20 MG/ML VIAL IV PRN (17:45)
[2019-02-09] MEDS: PIPER/TAZO/NS 2.25gm 2.25 GM/50 ML BAG IVPB SCH (17:46)
[2019-02-09] MEDS: MORPHINE 2 MG/ML SYR IV PRN ×2 (18:33→22:13)
--- NOTE | 2019-02-09 20:06 | RAD REPORT ---
EXAM DESCRIPTION: MRI - Cholangiogram - 02/09/2019 7:55 pm CLINICAL HISTORY: check for stone Abdominal pain COMPARISON: Abdomen Exam Limited dated 02/09/2019 FINDINGS: Three-dimensional MRCP was performed using maximum intensity projection reconstruction on the same work station. The gallbladder appears distended with multiple small stones present. Mild pericholecystic fluid is s een. Intrahepatic biliary tree appears mildly prominent. Abrupt caliber change is seen in the distal common bile duct suspicious for a stone. The common bile duct is dilated to 10 mm. The pancreas appears somewhat edematous. Correlation for pancreatitis is suggested clinically. Mild ascites is noted in the abdomen. IMPRESSION: Cholelithiasis is noted with distended gallbladder. Common bile duct dilatation is prese nt abrupt caliber change distally, raising suspicion of stone or stricture. Mild edematous appearance of the pancreatic parenchyma is seen, suggest correlation with amylase and lipase levels for possible pancreatitis. Mild ascites is noted in the abdomen.
[2019-02-10] MEDS ORDERED: HALOPERIDOL LACT 5 MG/ML INJ IV PRN ×2 (00:31→20:00)
[2019-02-10] MEDS: PIPER/TAZO/NS 2.25gm 2.25 GM/50 ML BAG IVPB SCH ×3 (01:40→17:19)
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
[2019-02-10] MEDS: MORPHINE 2 MG/ML SYR IV PRN ×2 (02:21→12:31)
[2019-02-10 06:16] LABS: Absolute Lymphocytes (CBC) 0.5 K/uL (0.7-4.9); Basophils % 0.1 % (0-1.3); Hematocrit 35.3 % (39.6-49.0); Lymphocytes % 4.1 % (15.3-44.8); MPV 7.8 fL (7.6-11.3); RBC Red Blood Cell Count 3.98 M/uL (4.33-5.43)
[2019-02-10 07:25] LABS: Bilirubin Total 2.7 mg/dL (0.2-1.0); Magnesium 1.9 mg/dL (1.8-2.4); Phosphorus 3.8 mg/dL (2.5-4.9); Potassium 3.5 mmol/L (3.5-5.1)
[2019-02-10] MEDS: INSULIN -REGULAR HUMAN 50 UNIT/0.5 ML ML SQ SCH ×4 (07:30→20:48)
[2019-02-10] MEDS: FAMOTIDINE 20 MG/2 ML VIAL IV SCH (08:02)
--- NOTE | 2019-02-10 09:22 | P.PN ---
Subjective Date of Service: 02/10/19 Subjective: Improving Physical Examination - Vital Signs Temperature: 98.3 F Blood Pressure: 171/91 Pulse: 86 Respirations: 20 Pulse Ox (%): 97 - Physical Exam General: Alert, In no apparent distress, Cooperative Gastrointestinal: Other (soft, mild stable epigastric TTP, no peritnoeal signs, mild voluntary guarding) - Studies Laboratory Data (last 24 hrs) 02/09/19 10:15: Creatinine 2.93 H 02/09/19 10:15: WBC 9.5, Hgb 9.5 L, Hct 27.9 L, Plt Count 235 02/09/19 10:15: Sodium 143, Potassium 3.1 L, BUN 29 H, Creatinine 2.95 H, Glucose 144 H, Total Bilirubin 1.4 H, AST 576 H*, ALT 236 H, Alkaline Phosphatase 95, Lipase > 60039 H Assessment And Plan - Current Problems (Diagnosis) (1) Acute gallstone pancreatitis Current Visit: Yes Status: Acute Plan: - Await GI consult with Dr. Holliday to decide if ERCP is necessary - continue medical management - cholecystectomy before discahrge, likely on wednesday
[2019-02-10 09:23] LABS: Blood Morphology Comment NOT SEEN (NOT SEEN); Platelet Estimate ADEQ
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
[2019-02-10] MEDS: NA CHLORIDE 0.9% 1,000 ML IV SCH ×2 (10:01→16:26)
[2019-02-10] MEDS: HYDRALAZINE HCL 20 MG/ML VIAL IV PRN (11:43)
[2019-02-10] MEDS ORDERED: GENTAMICIN SULF 80 MG/2ML INJ ONE ×3 (14:12→15:03)
[2019-02-10] MEDS ORDERED: PROPOFOL 200 MG/20 ML VIAL IV ONE ×2 (15:01)
[2019-02-10] MEDS ORDERED: LIDOCAINE 1% MPF 5 ML VIAL ONE (15:01)
[2019-02-10] MEDS ORDERED: EPHEDRINE SULF 50 MG/ML VIAL ONE (15:01)
--- NOTE | 2019-02-10 16:02 | ENDO RPT ---
[address], [address] ERCP PROCEDURE REPORT EXAM DATE: 02/10/2019 PATIENT NAME: Hector Lorenzana MR #: [id number] BIRTHDATE: 1945 ATTENDING: Allan Vieyra Dr STATUS: inpatient - [facility] ATTENDANT: Chela Linder, Crystal Quinones RN, and Fadi Flores RN INDICATIONS: The patient is a 73 yr old Male here for an ERCP due to suspected stone, abnormal imaging, abdominal pain, abnormal Liver Function Tests, and gallstone pancreatitis PROCEDURE PERFORMED: ERCP with sphincterotomy, ERCP with balloon passage, ERCP with removal of stones, and ERCP with stent placement MEDICATIONS: Per Anesthesia. CONSENT: The patient understands the risks and benefits of the procedure and understands that these risks include, but are not limited to: sedation, allergic reaction, infection, perforation and/or bleeding. Alternative means of evaluation and treatment include, among others: physical exam, x-rays, and/or surgical intervention. The patient elects to proceed with this endoscopic procedure. DESCRIPTION OF PROCEDURE: During intra-op preparation period all mechanical medical equipment was checked for proper function. Hand hygiene and appropriate measures for infection prevention was taken. Procedure, possible complications, and alternatives including but not limited to the possibility of bleeding, perforation, tear, infection, sepsis, need for surgery, need for blood transfusion, and anesthesia related complications were explained to the patient. In addition, 5-30% incidence of acute pancreatitis as a result of ERCP were explained. After the risks, benefits and alternatives of the procedure were thoroughly explained, Informed was verified, confirmed and timeout was successfully executed by the treatment team. With the patient in left semi-prone position, medications were administered intravenously.The [id number] ([id number]) was passed from the mouth into the esophagus and further advanced from the esophagus into the stomach. From stomach scope was directed to the second portion of the duodenum. Major papilla was aligned with the duodenoscope. The scope position was confirmed fluoroscopically. Rest of the findings/therapeutics are given below. The scope was then completely withdrawn from the patient and the procedure completed. The pulse, BP, and O2 saturation were monitored and documented by the physician and the nursing staff throughout the entire procedure. The patient was cared for as planned according to standard protocol. The patient was then discharged to recovery in stable condition and with appropriate post procedure care. A 4 mm black stone was found in the common bile duct. Sphincterotomy was performed with a regular 20 mm papillotome. A stone retrieval balloon was passed. A straight stent was placed. The pancreatic duct was filled to the tail and appeared to be normal. Care was taken not to overfill the ductal system. ADVERSE EVENT: none IMPRESSIONS: 1. 4 mm black stone in the distal common bile duct, s/p plastic biliary stent placement 2. The pancreatic duct was filled to the tail and appeared to be normal. Care was taken not to overfill the ductal system. RECOMMENDATIONS: 1. antibiotics 2. follow-up: GI clinic 4 week(s) REPEAT EXAM: Return in 2 week(s) for ERCP. Allan Vieyra Dr eSigned: Allan Vieyra Dr 02/10/2019 4:02 PM cc: CPT CODES: ICD9 CODES: PATIENT NAME: Hector Lorenzana MR#: [id number]
[2019-02-10] MEDS ORDERED: GLUCAGON 1 MG/VIAL ONE (16:08)
--- NOTE | 2019-02-10 16:42 | RAD REPORT ---
EXAM DESCRIPTION: RAD - Fluoroscopy ERCP - 02/10/2019 4:21 pm FINDINGS: Four portable C-arm views were submitted from a fluoroscopic assisted ERCP. Fluoro time wa s 3 minutes 20 seconds. Assessment is limited when only selected images are available. A small filling defect is seen on 2 of the images. This is suspected to be a duct stone but needs correlation with appearance during real-t alfreda evaluation.
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
[2019-02-11] MEDS: PIPER/TAZO/NS 2.25gm 2.25 GM/50 ML BAG IVPB SCH ×3 (00:30→16:20)
[2019-02-11] MEDS: HYDRALAZINE HCL 20 MG/ML VIAL IV PRN ×2 (01:07→19:27)
[2019-02-11] MEDS: MORPHINE 2 MG/ML SYR IV PRN ×2 (02:32→06:37)
[2019-02-11] MEDS: NA CHLORIDE 0.9% 1,000 ML IV SCH ×3 (04:24→18:56)
[2019-02-11 06:22] LABS: Lymphocytes % 6.1 % (15.3-44.8); MPV 8.2 fL (7.6-11.3); RBC Red Blood Cell Count 3.81 M/uL (4.33-5.43)
[2019-02-11 06:37] LABS: Bilirubin Total 1.9 mg/dL (0.2-1.0); Potassium 3.2 mmol/L (3.5-5.1); Protein, Total 7.7 g/dL (6.4-8.2)
[2019-02-11] MEDS: INSULIN -REGULAR HUMAN 50 UNIT/0.5 ML ML SQ SCH ×3 (07:30→18:00)
[2019-02-11] MEDS ORDERED: POTASSIUM CL SA 10 MEQ TAB PO ONE (08:41)
[2019-02-11] MEDS: FAMOTIDINE 20 MG/2 ML VIAL IV SCH (09:05)
[2019-02-11] MEDS ORDERED: Levofloxacin 250mg IV 250 MG/50 ML BAG IV SCH (10:00)
--- NOTE | 2019-02-11 10:00 | P.PN ---
Subjective Date of Service: 02/11/19 Subjective: Improving Physical Examination - Vital Signs Temperature: 98.7 F Blood Pressure: 159/84 Pulse: 115 Respirations: 20 Pulse Ox (%): 98 - Physical Exam General: Alert, Confused Gastrointestinal: Other (soft, mild epigastric and RUQ TTP, no peritoneal signs , stable exam) Assessment And Plan - Current Problems (Diagnosis) (1) Acute gallstone pancreatitis Current Visit: Yes Status: Acute Plan: - s/p ERCP with stone extraction - continue medical management - cholecystectomy before discahr, likely on wednesday - pancreatitis remains present currently, NPO
--- NOTE | 2019-02-11 11:42 | PN ---
Date of Progress Note: 02/11/2019 Subjective: Patient is seen and examined, chart reviewed, and case discussed with RN and Dr. Wise. Patient states he is feeling better, however, still has some abdominal tenderness. Medications: List reviewed. Physical Examination: Vital Signs: Temperature 98.7, heart rate 115, blood pressure 159/84, respirations 20, O2 at 98% on room air. General: Awake, alert, oriented x3. Elderly male, somewhat confused. CV: S1, S2. Regular rate and rhythm. Respiratory: Clear to auscultation bilaterally. No wheezing or stridor. Gastrointestinal: Abdomen is soft. Tenderness to palpation. No rebound or guarding. Positive bowel sounds. Extremities: No clubbing, cyanosis, or edema. Neurologic: Nonfocal. Laboratory Data: Sodium 148, potassium 3.2, chloride 115, CO2 of 21, BUN 44, creatinine 3.08, glucose 138, calcium 8.6, total bilirubin 1.9, AST 182, ALT 194 , alkaline phosphatase 94, albumin 3, lipase is 4704. WBC 16, H and H of 11.6 and 34, platelets 200, neutrophils 84%. Assessment And Plan: A 73-year-old male with: 1. Acute gallstone pancreatitis status post ERCP with stone removal and stent placement. Appreciate Dr. Vieyra's input. Lipase still very much elevated. We will keep n.p.o. 2. Acute abdominal pain, epigastric and right upper quadrant, secondary to above. Patient also has acute cholecystitis. We will continue pain medications , n.p.o. status. 3. Acute cholecystitis. Continue with IV fluids and Zosyn. Plan is for surgery after pancreatitis has improved. 4. Diabetes mellitus type 2, non-insulin requiring with hyperglycemia. Continue sliding scale insulin and monitor Accu-Cheks. 5. Essential hypertension, not well controlled. Medications have been adjusted. Patient is still n.p.o. 6. Acute kidney injury superimposed on some degree of chronic kidney disease. Patient likely has stage 3. Appreciate Nephrology's input. Creatinine slightly worse today. We will continue to monitor. 7. Hypokalemia. Replace and monitor. 8. Elevated liver enzymes secondary to gallstone pancreatitis, improving. 9. Hyperbilirubinemia, also improving now that stone has been removed from the duct. 10. Deep venous thrombosis prophylaxis with Lovenox. We will start 24 hours post procedure. 11. Disposition. Likely discharge in the next 48 to 72 hours after cholecystectomy and once pancreatitis has improved. ADDENDUM: Called by nurse for elevated lactate, pt flagging for sepsis. Given IVFs bolus x2. Abx already adjusted by GI. ADDENDUM: I was contacted after hours by Dr. Wise concerning worsening condition and need for cholecystostomy tube. I contacted [facility] and initiated transfer to higher level of care. Spoke with Dr. David grey covering regarding transfer. /OCHOA Voice ID: [id number] Report ID: [id number] LUZ
[2019-02-11] MEDS ORDERED: NA CHLORIDE 0.9% 1,000 ML IV ONE (14:05)
--- NOTE | 2019-02-11 19:05 | P.PN ---
Subjective Date of Service: 02/11/19 Chief Complaint: RUQ/KARIN pain, GS pancreatitis, +MRCP Subjective: New changes (Liver chemistries improved after ERCP with stent. But WBC up from 12.5 to 16.0, yet polys decreased from 89% to 85%. He denies abdominal pain now but is somewhat confused though family and staff say that he has been that way since admission. Lipase down from >30,000 on admission to 4, 704. Na up from 143 to 148 on IVF NS at 100 cc/hour with Cr up from 2.65 to 3.08 overnight.) Review of Systems 10-point ROS is otherwise unremarkable General: Weakness Neurological: Confusion (since admission) Physical Examination - Vital Signs Temperature: 100.5 F Blood Pressure: 184/99 Pulse: 112 Respirations: 20 Pulse Ox (%): 99 - Physical Exam General: Alert, Oriented x1, Cooperative, Disheveled, Delirious HEENT: Atraumatic, Normocephalic, PERRLA, EOMI Neck: Supple Respiratory: Normal air movement Cardiovascular: Normal pulses Gastrointestinal: No tenderness, No rebound, No guarding, Distended (mild with some tympany) Neurological: Normal speech, Normal strength at 5/5 x4 extr (walking to sink / bathroom on his own) Assessment And Plan - Current Problems (Diagnosis) (1) Gallstone pancreatitis Current Visit: Yes Status: Acute (2) RUQ abdominal pain Current Visit: Yes Status: Acute (3) Epigastric abdominal pain Current Visit: Yes Status: Acute (4) Abnormal magnetic resonance cholangiopancreatography (MRCP) Current Visit: Yes Status: Acute (5) Choledocholithiasis with acute cholecystitis Current Visit: Yes Status: Acute (6) Cholelithiasis Current Visit: Yes Status: Acute (7) Cholecystitis Current Visit: Yes Status: Acute (8) Abnormal liver enzymes Current Visit: Yes Status: Acute (9) Nausea & vomiting Current Visit: Yes Status: Acute - Plan REC: 1) with increasing WBC despite ERCP with stent, will add Levaquin to Zosyn and discuss with surgery 2) monitor labs closely 3) check vitals q 4 hours overnight 4) change IVFs to LR at 125 cc/hour
[2019-02-11] MEDS ORDERED: Ringers Lactate 1,000 ML IV SCH (20:00)
[2019-02-12] MEDS: INSULIN -REGULAR HUMAN 50 UNIT/0.5 ML ML SQ SCH
--- NOTE | 2019-02-12 | P.PN ---
Date of Service: 02/11/19 I have spoken with the of Hector Lorenzana this evening regarding his condition. I have explained that he appears to be having a suboptimal response to medical management and currently continues to have pancreatitis and concern for ongoing cholangitis which can be progressing to sepsis and a potentially life threatening situation. I have recommended placement of a cholecystostomy tube by interventional radiologist, however we do not have the capability to do so at our facility and I have confirmed this with Dr. Cardenas. Therefore given his current condition I have recommended that he be transferred to a higher level of care for placement of the tube, as he is at greater risk for complications related to surgery should we attempt a cholecystecotmy. Patient has been accepted for transfer to [facility], but patient states she does not want to allow the transfer to any facility other than [facility]. [facility] [place] is currently at capacity and is not able to accept the patient and we have informed patients that the transfer cannot go to [place] at this time due to this reason. She has further stated that she will not accept transfer to [facility], and will only accept transfer to [facility]. I have stated that this can potentially lead to life threatening complications should transfer be delayed. She has stated that she is unhappy with our facility and refuses any surgical intervention or transfer to any associated hospitals related to [facility]. I have expressed my concern that the patient can potentially if this course is continued and that we should transfer the patient to a facility which has the capacity to perform cholecystostomy tube and offer a higher level of care, but she refused. She refused to speak with me any longer regarding this situation.
--- NOTE | 2019-02-12 00:11 | P.PN ---
Date of Service: 02/11/19 (11:48 PM) Dr. Reddy called and informed me about the need for Mr. Lorenzana to be transfered to another facility for Cholecystostomy tube placement and gave instructions to transfer to [facility]. Per chart reveiew, patient has pancreatitis, s/p ERCP with sphincteromy and bile duct stone extraction. Patient developed fever tachycardia and leukocytosis next day after the procedure and despite being on IV zosyn. He meets criteria for sepsis. Lipase level is still significantly elevated. Dr. Jamison also called me and informed me about the need for transfer for cholecystostomy as patient is septic and is high risk for cholecystectomy.[facility] was contacted but was told they are up to capacity and have no bed availability. Transfer to [facility] was initiated and patient accepted for transfer. Spouse refused transfer to [facility] and want transfer only to [facility] at the medical center and will wait until a bed becomes available. Patient was confused and deemed not capable of making informed medical decisions. I explained to the spouse the need for the cholecystostomy is time dependent give the presence of sepsis and pancreatitis with high mortality. She wanted me to go ahead and cancel the transfer to [facility]. I called Dr. Dey and informed him of spouse's decision. Dr. Dey had a discussion with the spouse regarding the need for transfer as soon as possible. Spouse was made aware of patient's high risk of waiting here until a bed becomes available for transfer to [facility]. She is adamant for to stay until transfer to [facility]. In the meantime patient will be transfered to the ICU for close monitoring. [facility] transfer center is contacted again to put patient on their priority list for transfer. Continue IV zosyn. Will add IV levaquin. Obtain blood cultures. Spouse is also upset about patient's elevated blood pressure. He is currently strictly NPO and his BP is being managed with IV hydralazine. Recheck blood pressure. Will give a dose of amlodipine 5 mg tonight.
[2019-02-12] MEDS ORDERED: AMLODIPINE 5 MG TAB PO ONE (00:23)
[2019-02-12] MEDS ORDERED: Levofloxacin 750mg IV 750 MG/150 ML BAG IV SCH (01:00)
[2019-02-12 01:30] VITALS: TEMP 100.2
[2019-02-12] MEDS: PIPER/TAZO/NS 2.25gm 2.25 GM/50 ML BAG IVPB SCH (01:37)
[2019-02-12] MEDS: HYDRALAZINE HCL 20 MG/ML VIAL IV PRN (01:38)
[2019-02-12 02:19] VITALS: O2SAT 99
[2019-02-12 03:13] VITALS: BP 167/91
--- NOTE | 2019-02-12 07:03 | P.PN ---
Date of Service: 02/12/19 Dr. Reddy called and informed me about the need for Mr. Lorenzana to be transfered to another facility for Cholecystostomy tube placement and gave instructions to transfer to [facility]. Per chart reveiew, patient has pancreatitis, s/p ERCP with sphincteromy and bile duct stone extraction. Patient developed fever tachycardia and leukocytosis next day after the procedure and despite being on IV zosyn. He meets criteria for sepsis. Lipase level is still significantly elevated. Dr. Jamison also called me and informed me about the need for transfer for cholecystostomy as patient is septic and is high risk for cholecystectomy.[facility] was contacted but was told they are up to capacity and have no bed availability. Transfer to [facility] was initiated and patient accepted for transfer. Spouse refused transfer to [facility] and want transfer only to [facility] at the medical center and will wait until a bed becomes available. Patient was confused and deemed not capable of making informed medical decisions. I explained to the spouse the need for the cholecystostomy is time dependent give the presence of sepsis and pancreatitis with high mortality. She wanted me to go ahead and cancel the transfer to [facility]. I called Dr. Dey and informed him of spouse's decision. Dr. Dey had a discussion with the spouse regarding the need for transfer as soon as possible. Spouse was made aware of patient's high risk of waiting here until a bed becomes available for transfer to [facility]. She is adamant for to stay until transfer to [facility]. In the meantime patient will be transfered to the ICU for close monitoring. [facility] transfer center is contacted again to put patient on their priority list for transfer. Continue IV zosyn. Will add IV levaquin. Obtain blood cultures. Spouse is also upset about patient's elevated blood pressure. He is currently strictly NPO and his BP is being managed with IV hydralazine. Recheck blood pressure. Will give a dose of amlodipine 5 mg tonight. Spouse later agreed to transfer to [facility]. Transfer process restarted. Patient got accepted for transfer. I am told he left the facility at 3:55 am.
--- NOTE | 2019-02-12 12:52 | DS ---
Date of Discharge: 02/12/2019 Consultants: Dr. Vieyra with GI, Dr. Wise with Surgery. Procedures: Endoscopic retrograde cholangiopancreatography by Dr. Vieyra. Admitting Diagnoses: 1. Acute abdominal pain, epigastric and right upper quadrant. 2. Acute gallstone pancreatitis. 3. Acute cholecystitis. 4. Diabetes mellitus type 2, bac-uxzdsah-tuxbxyjuz with hyperglycemia. 5. Essential hypertension. 6. Acute on chronic kidney disease stage 3. 7. Hypokalemia. 8. Elevated liver enzymes. 9. Dementia. Discharge Diagnoses: 1. Acute gallstone pancreatitis. 2. Ascending cholangitis. 3. Acute abdominal pain, epigastric and right upper quadrant. 4. Acute cholecystitis. 5. Diabetes mellitus type 2 yyl-vrhmlte-[id number] with hyperglycemia. 6. Essential hypertension, not well controlled. 7. Acute kidney injury superimposed on chronic kidney disease likely stage 3. 8. Hyperkalemia. 9. Elevated liver enzymes. 10. Hyperbilirubinemia. Hospital Course: Patient is a 73-year-old male with past medical history of hypertension that is not well controlled, chronic kidney disease with unknown baseline, along with cognitive impairment with signs of memory loss and dementia , who came in with abdominal pain. Patient was found to have acute gallstone pancreatitis. His lipase was greater than 30,000, bilirubin was elevated. Ultrasound showed cholelithiasis and common bile duct dilatation suggesting choledocholithiasis. Patient was started on IV antibiotics, IV fluids, kept n.p.o., GI was consulted, as well as General Surgery. Patient had MRCP done which showed changes related to choledocholithiasis. Dr. Vieyra performed ERCP with stone removal and stent placement. Please see his procedure note for further details. Patient's lipase level improved. His white count also improved initially, however, patient then started to become septic. His IV antibiotics were adjusted. White count jumped up to 16,000. His lactate was elevated. He was given multiple boluses of IV fluids. Cultures were no growth to date. Surgeon, Dr. Wise recommended percutaneous cholecystostomy tube placement confirmed with our radiologist, Dr. Cardenas who was unavailable and there was no 1 to do the procedure at this facility, therefore recommendation was to transfer the patient. Transfer was initially was done to [facility], however, there were at capacity, therefore [facility] was tried, they were denied there, and then [facility] and patient was accepted there, however, did not wish the patient to go to [facility] despite understanding that the patient's condition was critical, he will likely develop worsening sepsis, which will eventually lead to . Please see Dr. Hernandez and Dr. iWse's note regarding discussion with family member that took place overnight. Patient 's eventually agreed to transfer to [facility] and patient was transferred there around 3:35 a.m. for higher level of care for percutaneous cholecystostomy tube placement for ascending cholangitis. Patient was discharged at 3:35 a.m. before being seen. Transferred to [facility] by Dr. Hernandez Time Spent: Total time spent transferring the patient was 39 minutes. /OCHOA Voice ID: [id number] Report ID: [id number]
== END 2019-02-12 03:53 | disposition short-term general hospital (02) | DRG 871 ==
LOC: ER 09:55 → ERHOLD 12:24 → 4TH 13:16 → 2ND 02-10 17:34 → 3RD-ICU 02-12 01:05
PROVIDERS: ADMIT Family Medicine; ATTEND Family Medicine
PROC: 0F798DZ Dilation of Common Bile Duct with Intraluminal Device, Via Natural or Artificial Opening Endoscopic (ICD-10-PCS; 2019-02-10)
PROC: 0FC98ZZ Extirpation of Matter from Common Bile Duct, Via Natural or Artificial Opening Endoscopic (ICD-10-PCS; principal; 2019-02-10 12:30)
DX: A41.9 Sepsis, unspecified organism (principal); K85.10 Biliary acute pancreatitis without necrosis or infection; N17.9 Acute kidney failure, unspecified; K80.42 Calculus of bile duct with acute cholecystitis without obstruction; I12.9 Hypertensive chronic kidney disease with stage 1 through stage 4 chronic kidney disease, or unspecified chronic kidney disease; E11.22 Type 2 diabetes mellitus with diabetic chronic kidney disease; E11.65 Type 2 diabetes mellitus with hyperglycemia; N18.3 Chronic kidney disease, stage 3 (moderate); E87.5 Hyperkalemia; R74.8 Abnormal levels of other serum enzymes; E80.6 Other disorders of bilirubin metabolism; F03.90 Unspecified dementia, unspecified severity, without behavioral disturbance, psychotic disturbance, mood disturbance, and anxiety
CPT/HCPCS: 36415; 74181; 76705; 80048; 80053; 80076; 81003; 81015; 82962; 83605; 83690; 83735; 84100; 85025; 85610; 87040; 93005; 94760; 96361; 96365; 96368; 96375; 99285; C1769; C2625; J0360; J1580; J1610; J1630; J2270; J2405; J2704; J7030